=== PATIENT | female | born 1935 | race Caucasian/White ===

== ENCOUNTER 2022-07-22 12:13 | Day surgery (SDC) | payer MEDICARE ==
[2022-07-17 10:32] LABS: BASOPHILS % (AUTO) 0.6 % (0.0-5.0); EOSINOPHILS % (AUTO) 6.9 % (0.0-8.0); LYMPHOCYTES % (AUTO) 35.5 % (21.0-51.0); MEAN CORPUSCULAR HEMOGLOBIN 31.1 pg (27.0-33.0); MEAN CORPUSCULAR HGB CONC 32.3 g/dL (32.0-36.0); MEAN CORPUSCULAR VOLUME 96.4 fL (79-99); MONOCYTES % (AUTO) 9.7 % (3.0-13.0); NEUTROPHILS % (AUTO) 47.1 % (40.0-77.0); PLATELET COUNT (AUTO) 176 K/uL (130-400); RED BLOOD CELL COUNT(AUTO) 3.63 MIL/uL (4.00-5.50); RED CELL DISTRIBUTION WIDTH 13.3 % (11.0-15.5); WHITE BLOOD COUNT (AUTO) 5.1 K/uL (4.8-10.8)
[2022-07-17 10:40] LABS: CREATININE 1.2 mg/dL (0.5-1.5); POTASSIUM 5.2 mmol/L (3.5-5.1)
[2022-07-17 10:44] LABS: INR 0.94 (0.85-1.15); PROTHROMBIN TIME 10.3 SEC (9.6-11.6)
[2022-07-17 10:45] LABS: PARTIAL THROMBOPLASTIN TIME 26.4 SEC (26.3-35.5)
[2022-07-17 11:18] LABS: APPEARANCE,URINE CLEAR (CLEAR); BILIRUBIN,URINE NEGATIVE (NEGATIVE); COLOR,URINE COLORLESS (YELLOW); GLUCOSE, URINE (UA) NEGATIVE (NEGATIVE); KETONES,URINE NEGATIVE (NEGATIVE); LEUKOCYTE ESTERASE ,URINE NEGATIVE Leu/uL (NEGATIVE); NITRATE,URINE NEGATIVE (NEGATIVE); OCCULT BLOOD,URINE NEGATIVE (NEGATIVE); PROTEIN,URINE NEGATIVE (NEGATIVE); UROBILINOGEN,URINE 0.2 mg/dL (0.2-1.0)
[2022-07-21 09:33] VITALS: BP 141/69
[~2022-07-22] VITALS: Ht 167.6 cm; Wt 103.2 kg
[~2022-07-22 12:13] MED LIST: APIX5TAB PO; ASCO500C18 PO; FERR324T4 PO; FURO40TA5 PO; GABA600T10 PO; LISI20TA24 PO
[2022-07-22 12:20] VITALS: BP 158/81
[2022-07-22] MEDS ORDERED: 0.9%NACL 1000ML 1,000 ML IV ONE (13:12)
[2022-07-22] MEDS ORDERED: DiphenhydrAMINE HCL 50 MG/ML VIAL ONE (13:12)
[2022-07-22] MEDS ORDERED: POTA20PA32 PO (13:19)
[2022-07-22] MEDS ORDERED: BUPIVACAINE/PF 0.25% 30ML VIAL IJ ONE (14:55)
[2022-07-22] MEDS ORDERED: LIDOCAINE HCL 1% 20 ML VIAL ONE (14:55)
[2022-07-22] MEDS ORDERED: OCTYL 2-CYANOACRYLATE 1 EACH TP ONE (15:23)
[2022-07-22 15:50] VITALS: BP 126/72
[2022-07-22 16:05] VITALS: BP 126/70
[2022-07-22 16:20] VITALS: BP 130/74
[2022-07-22 16:45] VITALS: BP 136/78
== END 2022-07-22 16:45 | disposition home or self-care (01) ==
LOC: DAH 12:13
PROVIDERS: ATTEND Internal Medicine Interventional Cardiology
DX: Z45.09 Encounter for adjustment and management of other cardiac device (principal); I48.0 Paroxysmal atrial fibrillation; R60.0 Localized edema; E78.2 Mixed hyperlipidemia; Z86.73 Personal history of transient ischemic attack (TIA), and cerebral infarction without residual deficits; Z88.6 Allergy status to analgesic agent; Z88.8 Allergy status to other drugs, medicaments and biological substances; Z98.890 Other specified postprocedural states; Z90.89 Acquired absence of other organs; Z90.710 Acquired absence of both cervix and uterus; Z90.49 Acquired absence of other specified parts of digestive tract; Z82.49 Family history of ischemic heart disease and other diseases of the circulatory system; Z79.01 Long term (current) use of anticoagulants; Z79.899 Other long term (current) drug therapy
CPT/HCPCS: 80048; 85025; 85610; 85730; 81003; 36415; 93005; 33286; J1200; J7030; J3490; A4215; A4222; A4221; A4663; A4216; A4606; A4223 ×3

== ENCOUNTER → 2023-06-17 | Outpatient (CLI) | payer MEDICARE ==
[~2023-06-17] MED LIST changes: +POTA20PA32 PO
== END | disposition home or self-care (01) ==
LOC: LAB 13:04
PROVIDERS: ATTEND Internal Medicine Interventional Cardiology
DX: I87.2 Venous insufficiency (chronic) (peripheral) (principal); I10 Essential (primary) hypertension; I48.11 Longstanding persistent atrial fibrillation; G60.8 Other hereditary and idiopathic neuropathies; Z68.36 Body mass index [BMI] 36.0-36.9, adult; Z71.3 Dietary counseling and surveillance
CPT/HCPCS: 36415; 85378

== ENCOUNTER → 2023-07-14 | Outpatient (CLI) | payer MEDICARE ==
[~2023-07-14] MED LIST changes: +IOHEXOL-350 75 ML VIAL IV ONE
== END | disposition home or self-care (01) ==
LOC: RAH 07:56
PROVIDERS: ATTEND Family Medicine
DX: I25.10 Atherosclerotic heart disease of native coronary artery without angina pectoris (principal); J44.9 Chronic obstructive pulmonary disease, unspecified; J98.11 Atelectasis; I51.7 Cardiomegaly; M47.815 Spondylosis without myelopathy or radiculopathy, thoracolumbar region; M41.85 Other forms of scoliosis, thoracolumbar region; M25.78 Osteophyte, vertebrae; R79.1 Abnormal coagulation profile
CPT/HCPCS: 71270; Q9967

== ENCOUNTER → 2023-10-16 | Outpatient (CLI) | payer MEDICARE ==
[~2023-10-16] MED LIST changes: -IOHEXOL-350 75 ML VIAL IV ONE
== END | disposition home or self-care (01) ==
LOC: RAH 14:20
PROVIDERS: ATTEND Family Medicine
DX: I87.2 Venous insufficiency (chronic) (peripheral) (principal); I82.431 Acute embolism and thrombosis of right popliteal vein; M79.604 Pain in right leg; R60.0 Localized edema
CPT/HCPCS: 93971